=== PATIENT | male | born 1995 | race African-American/Black ===

== ENCOUNTER 2019-03-30 19:22 | Emergency (ER) | payer SELFPAY ==
[2019-03-30 19:52] VITALS: BP 142/63
[2019-03-30] MEDS ORDERED: Albuterol/Ipratropium NEB.SOL* Albuterol 2.5 MG/Ipratropium 0.5 MG 3 ML INH ONE (20:06)
[2019-03-30] MEDS ORDERED: predniSONE TAB* 20 MG PO ONE (20:06)
--- NOTE | 2019-03-30 20:12 | UC ---
Respiratory Complaint HPI - HPI Summary HPI Summary: C/O wheezing severe at 3 am. No longer has an inhaler. Some chest congestion. Denies fevers/ sinus pain. - History of Current Complaint Chief Complaint: UCRespiratory Stated Complaint: ASTHMA CONCERN Time Seen by Provider: 03/30/19 20:00 Hx Obtained From: Patient Onset/Duration: Sudden Onset, Lasting Days - 1, Worse Since - this morning Timing: Constant Severity Initially: Moderate Severity Currently: Mild Pain Intensity: 0 Character: Cough: Nonproductive Aggravating Factors: Deep Breaths, Recumbent Position Alleviating Factors: Nothing Associated Signs And Symptoms: Positive: Dyspnea, Wheezing - Allergies/Home Medications Allergies/Adverse Reactions: Allergies Allergy/AdvReac Type Severity Reaction Status Date / Time shellfish derived Allergy Unknown Verified 03/30/19 19:52 Reaction Details Home Medications: Home Medications Phenylephrine/Dm/Acetaminop/GG [Daytime Severe Cold-Flu Liquid] 355 ml PO DAILY 03/30/19 [History Confirmed 03/30/19] PMH/Surg Hx/FS Hx/Imm Hx Respiratory History: Asthma - Surgical History Surgical History: None - Family History Known Family History: Negative: Cardiac Disease, Hypertension, Diabetes - Social History Occupation: Employed Full-time Lives: Alone - with girlfriend Alcohol Use: Rare Substance Use Type: None Smoking Status (MU): Never Smoked Tobacco Type: eCigarettes Review of Systems All Other Systems Reviewed And Are Negative: Yes Respiratory: Positive: Shortness Of Breath, Cough Physical Exam Triage Information Reviewed: Yes Appearance: Well-Appearing, No Pain Distress, Well-Nourished Vital Signs: Initial Vital Signs Temp 99.5 F 03/30/19 19:46 Pulse 55 03/30/19 19:46 Resp 17 03/30/19 19:46 BP 142/63 03/30/19 19:46 Pulse Ox 99 03/30/19 19:46 Vital Signs Reviewed: Yes Eyes: Positive: Conjunctiva Inflamed ENT: Positive: Nasal congestion - with allergic changes, TMs normal Neck exam: Normal Respiratory: Positive: Wheezing - diffuse mild/mod expiratory wheezes Cardiovascular Exam: Normal Musculoskeletal Exam: Normal Neurological Exam: Normal Psychological Exam: Normal Skin Exam: Normal Respiratory Course/Dx - Differential Dx/Diagnosis Differential Diagnosis/HQI/PQRI: Asthma Provider Diagnosis: Upper respiratory infection, Acute bronchospasm due to viral infection Discharge ED - Sign-Out/Discharge Documenting (check all that apply): Patient Departure All imaging exams completed and their final reports reviewed: No Studies - Discharge Plan Condition: Stable Disposition: HOME Prescriptions: Albuterol HFA INHALER* [Ventolin HFA Inhaler*] 2 puff INH Q4H PRN #1 mdi PRN Reason: Wheezing predniSONE TAB* [Deltasone 20 MG TAB*] 60 mg PO DAILY #18 tab Patient Education Materials: Upper Respiratory Infection (ED), Bronchospasm (ED ), Prednisone (By mouth), How to Use a Metered-Dose Inhaler (ED) Referrals: No Primary Care Phys,NOPCP [Primary Care Provider] - Additional Instructions: NO MORE VAPING!!!!! - Billing Disposition and Condition Condition: STABLE Disposition: Home
[2019-03-30] MEDS ORDERED: Albuterol HFA INHALER* 8 gm MDI INH ONE (20:17)
== END 2019-03-30 20:38 | disposition home or self-care (01) ==
LOC: UCCORT 19:22
DX: J06.9 Acute upper respiratory infection, unspecified (principal); J98.01 Acute bronchospasm; Z91.013 Allergy to seafood
CPT/HCPCS: 99203; A9270-GY; G0463; J7512

== ENCOUNTER 2019-10-13 19:01 | Emergency (ER) | payer SELFPAY ==
--- NOTE | 2019-10-13 19:18 | ED ---
Nausea/Vomiting/Diarrhea HPI - HPI Summary HPI Summary: 24 yo comes for return to work note following one day of stomach upset which has resolved. States that he ate only pizza yesterday, and it caused stomach upset. He denies heartburn, vomiting, diarrhea and feels fine at this time. No past hx of GI problems. He took no medications for relief of pain. - History of Current Complaint Chief Complaint: UCGeneralIllness Stated Complaint: UPSET STOMACH Time Seen by Provider: 10/13/19 19:16 Hx Obtained From: Patient Onset/Duration: Sudden Onset, Lasting Days - 2 Timing: Intermittent Episodes Lasting: Severity Initially: Mild Severity Currently: Mild Pain Intensity: 0 Location: Epigastric Character: Cramping Aggravating Factor(s): Nothing Alleviating Factor(s): Nothing Nausea/Vomiting Presence: None - Risk Factors Influenza Risk Factors: Negative Surgical Obstruction Risk Factor(s): Negative - Allergies/Home Medications Allergies/Adverse Reactions: Allergies Allergy/AdvReac Type Severity Reaction Status Date / Time shellfish derived Allergy Unknown Verified 10/13/19 19:10 Reaction Details Home Medications: Home Medications Albuterol HFA INHALER* [Ventolin HFA Inhaler*] 2 puff INH Q4H PRN #1 mdi [Rx Confirmed 10/13/19] PMH/Surg Hx/FS Hx/Imm Hx Previously Healthy: Yes Respiratory History: Reports: Hx Asthma - Surgical History Surgery Procedure, Year, and Place: B/L ear tubes Infectious Disease History: No Infectious Disease History: Denies: Traveled Outside the [place] in Last 30 Days - Family History Known Family History: Positive: None - parents living and healthy Negative: Cardiac Disease, Hypertension, Diabetes - Social History Occupation: Employed Full-time Alcohol Use: Rare Substance Use Type: Reports: None Smoking Status (MU): Never Smoked Tobacco Type: Cigarettes Review of Systems Constitutional: Negative Eyes: Negative ENT: Negative Cardiovascular: Negative Respiratory: Negative Positive: Other - indigestion Genitourinary: Negative Musculoskeletal: Negative Skin: Negative Neurological/Mental Status: Negative Psychological: Normal All Other Systems Reviewed And Are Negative: No Physical Exam Triage Information Reviewed: Yes Appearance: Positive: Well-Appearing - Physical exam limited due to limited illness and well appearance., No Pain Distress, Well-Nourished ENT: Positive: Normal ENT inspection Cardiovascular: Positive: Normal Abdomen Description: Positive: Nontender, No Organomegaly, Soft. Negative: Distended, Guarding, Splenomegaly Neurological: Positive: Normal Psychiatric: Positive: Normal Naus/Vom/Diarrhea Course/Dx - Course Course Of Treatment: Fit to return to work tomorrow. - Differential Dx/Diagnosis Differential Diagnoses - Male: Gerd, Gastroenteritis (Viral) Provider Diagnosis: Indigestion Discharge ED - Sign-Out/Discharge Documenting (check all that apply): Patient Departure All imaging exams completed and their final reports reviewed: No Studies - Discharge Plan Condition: Stable Disposition: HOME Patient Education Materials: Indigestion (ED) Forms: *Work Release Referrals: No Primary Care Phys,NOPCP [Primary Care Provider] - Additional Instructions: You are fit to return to work tomorrow. Follow up if you have recurrent symptoms. - Billing Disposition and Condition Condition: STABLE Disposition: Home
[2019-10-13 19:25] VITALS: BP 107/70
== END 2019-10-13 19:45 | disposition home or self-care (01) ==
LOC: UCCORT 19:01
DX: K30 Functional dyspepsia (principal); J45.909 Unspecified asthma, uncomplicated; Z91.013 Allergy to seafood
CPT/HCPCS: 99211; G0463